=== PATIENT | female | born 1975 | race African-American/Black ===

== ENCOUNTER 2022-09-13 08:45 | Outpatient (CLI) | payer MEDICARE, BC, OTHER | END 2022-09-13 23:59 | disposition home or self-care (01) | LOC: LAB.N 08:45 | PROVIDERS: ATTEND Registered Nurse | DX: L02.91 Cutaneous abscess, unspecified (principal) | CPT/HCPCS: 87070; 87205 ==

== ENCOUNTER 2023-08-01 09:56 | Emergency (ER) | payer MEDICARE, BC, OTHER ==
[2023-08-01 10:17] VITALS: BP 115/80; O2SAT 100
--- NOTE | 2023-08-01 10:31 | XRAY Report ---
PROCEDURE: Shoulder 3 View RT INDICATIONS: trauma TECHNIQUE: 3 views of the shoulder were acquired. COMPARISON: None. FINDINGS: Bones: No fractures or dislocations. No suspicious bony lesions. Visualized ribs appear intact. Degenerative changes of the acromioclavicular and glenohumeral joints. Soft tissue calcifications ove r the superolateral right humeral head may represent sequela of chronic calcific rotator cuff tendino brandon. Tiny calcification over the inferior rim of the glenoid is likely chronic. . Soft tissues: No suspicious soft tissue calcifications. The visualized lungs are within normal limi ts. IMPRESSION: Right shoulder without definite acute fracture. Normal alignment. Moderate degenerative changes of th e acromioclavicular and glenohumeral joints. 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 Suspected chronic soft tissue calcification over the inferior glenoid. If there is continued clinical concern for pathology or occult fracture, consider follow-up imaging w ith repeat radiographs in 10-14 days and possible advanced imaging (CT, MRI, bone scan) if symptoms p ersist. Reviewed by: Jeffrey Lewis MD on 08/01/2023 10:30 AM PST Approved by: Jeffrey Lewis MD on 08/01/2023 10:30 AM PST Station ID: [id number]
--- NOTE | 2023-08-01 12:10 | ED Physician Documentation ---
PD HPI UPPER EXT INJURY - Stated complaint Stated Complaint: SHOULDER PX - Chief complaint Chief Complaint: Ext Problem - History obtained from History obtained from: Patient - Additonal information Additional information: Patient is a 48-year-old female presenting for evaluation Right shoulder pain for 4 days since lifting boxes for a move. 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 Denies prior injuries to the right shoulder. Reports pain with range of motion. Has occasionally tried some ibuprofen, 400 mg usually at night without any significant improvement. Patient states that the pain is worse as the day goes on. Reports feeling some tightness now behind the shoulder. No chest pain or shortness of air. Does not take a blood thinner. No other trauma. Review of Systems Cardiac: denies: Chest pain / pressure Respiratory: denies: Dyspnea Musculoskeletal: reports: Extremity pain PD PAST MEDICAL HISTORY - Past Medical History Past Medical History: Yes Musculoskeletal: Other Other Past Medical History: shai donohue - Past Surgical History Past Surgical History: Yes Ortho: ACL reconstruction - Present Medications Home Medications: Ambulatory Orders Medication Instructions Recorded Confirmed Cyclobenzaprine [Flexeril] 10 mg PO TID PRN #15 tablet 08/01/23 Lidocaine Patch 5% [Lidoderm Patch] 1 patch TOP DAILY PRN #10 patch 08/01/23 - Allergies Allergies/Adverse Reactions: Allergies Allergy/AdvReac Type Severity Reaction Status Date / Time Sulfa (Sulfonamide Allergy Diaphoresis Verified 08/01/23 10:12 Antibiotics) - Social History Does the pt smoke?: No Smoking Status: Never smoker Does the pt drink ETOH?: No Does the pt have substance abuse?: No - Immunizations Immunizations are current?: Yes - POLST Patient has POLST: No PD ED PE NORMAL - General General: Alert and oriented X 3, No acute distress, Well developed/nourished - HEENT HEENT: Atraumatic - Neck Neck: Supple, no meningeal sign, No bony TTP - Cardiac Cardiac: RRR, Strong equal pulses - Respiratory Respiratory: No respiratory distress, Clear bilaterally - Extremities Extremities: Other (No deformity, muscle spasm over right trapezius, pain with range of motion of right shoulder but able to touch left shoulder with right hand and abduct to 90 degrees; Motor and sensation grossly intact in right extremity) - Neuro Neuro: Alert and oriented X 3, No motor deficit, No sensory deficit, Normal speech Results - Vitals Vitals: Vital Signs - 24 hr 08/01/23 10:08 Temperature 36.0 C L Heart Rate 75 Respiratory 20 Rate Blood Pressure 115/80 O2 Saturation 100 Oxygen O2 Source Room air PD Medical Decision Making - ED course Complexity details: reviewed results, d/w patient ED course: Patient is a 48-year-old female presenting for evaluation of right shoulder pain after lifting boxes a few days ago. Neurovascularly intact. No deformiti es noted. No exam findings to suggest dislocation. An x-ray was obtained which I reviewed I see no fracture or dislocation. Patient does have some tightness over the trapezius. I discussed options for treatment and she is agreeable to trial of muscle relaxers along with anti-inflammatories and lidocaine patch. Patient also given a sling for comfort but instructed on getting her arm out of the sling and range of motion at the shoulder several times a day. Patient counseled on need for close follow-up as well as concerning symptoms to return for. Departure - Departure Disposition: 01 Home, Self Care Clinical Impression: Right shoulder pain Condition: Stable Instructions: ED Shoulder Pain [facility] Prescriptions: Cyclobenzaprine [Flexeril] 10 mg PO TID PRN #15 tablet PRN Reason: Spasms Lidocaine Patch 5% [Lidoderm Patch] 1 patch TOP DAILY PRN #10 patch PRN Reason: pain Comments: Your shoulder x-ray does not show a fracture or dislocation. We have given you a sling to help provide support. Please continue with acetaminophen or ibuprofen as an anti-inflammatory. I also sent prescriptions for lidocaine patches and a muscle relaxer to [facility] in [place]. Use the sling as needed for comfort but also make sure to get your arm out of the sling and move your arm around in all directions several times a day to prevent a frozen shoulder. I would also recommend close follow-up with your primary care provider. If your symptoms or not improving then you may need further testing such as an MRI. XRAY IMPRESSION: Right shoulder without definite acute fracture. Normal alignment. Moderate degenerative changes of the acromioclavicular and glenohumeral joints. 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 Suspected chronic soft tissue calcification over the inferior glenoid. If there is continued clinical concern for pathology or occult fracture, consider follow-up imaging with repeat radiographs in 10-14 days and possible advanced imaging (CT, MRI, bone scan) if symptoms persist. Forms: PCP List Discharge Date/Time: 08/01/23 12:21
== END 2023-08-01 12:21 | disposition home or self-care (01) ==
LOC: ED 09:56
DX: M25.511 Pain in right shoulder (principal)
CPT/HCPCS: 99283

== ENCOUNTER 2023-09-07 10:30 | Outpatient (CLI) | payer MEDICARE, BC, OTHER ==
[2023-09-07 21:18] LABS: BACTERIAL VAGINOSIS DNA NEGATIVE (NEGATIVE); CANDIDA GLABRATA DNA NEGATIVE (NEGATIVE); CANDIDA GROUP DNA NEGATIVE (NEGATIVE); CANDIDA KRUSEI DNA NEGATIVE (NEGATIVE); TRICHOMONAS VAGINALIS DNA NEGATIVE (NEGATIVE)
[2023-09-07 22:37] LABS: CHLAMYDIA TRACHOMATIS DNA NEGATIVE (NEGATIVE); NEISSERIA GONORRHOEAE DNA NEGATIVE (NEGATIVE)
== END 2023-09-07 10:45 | disposition home or self-care (01) ==
LOC: LAB.N 10:30
PROVIDERS: ATTEND Physician Assistant Medical
DX: N89.8 Other specified noninflammatory disorders of vagina (principal); R39.89 Other symptoms and signs involving the genitourinary system
CPT/HCPCS: 81514; 87086; 87491; 87591; 87661

== ENCOUNTER 2023-10-09 13:27 | Outpatient (CLI) | payer MEDICARE, BC, OTHER ==
--- NOTE | 2023-10-09 14:53 | Ultrasound Report ---
PROCEDURE: Pelvic w/Transvaginal INDICATIONS: FIBROIDS TECHNIQUE: Real-time scanning was performed of the pelvic organs, with image documentation. Additional endovagi nal scanning was necessary due to incomplete visualization of the adnexal and endometrial structures by transabdominal scanning. COMPARISON: None. FINDINGS: Uterus: 7.6 x 4.3 x 4 cm. Anteverted positioning. Endometrium measures 4 mm. Multiple fibroids, the largest is classified as FIGO 2, located in the posterior mid region measuring 2.8 x 2.7 cm. Other subserosal fibroids are seen measuring up to 1.7 and 1.3 cm. Other: No pathologic free fluid. IMPRESSION: Fibroid uterus, the largest cyst FIGO 2 in the posterior mid region measuring up to 2.8 cm. No other acute abnormality. Nonenlarged ovaries without discrete complex cyst or solid lesion. Reviewed by: Denny Smith MD on 10/09/2023 2:52 PM PST Approved by: Denny Smith MD on 10/09/2023 2:52 PM PST Station ID: [id number]
== END 2023-10-09 13:28 | disposition home or self-care (01) ==
LOC: DI 13:27
PROVIDERS: ATTEND Obstetrics & Gynecology
DX: D25.9 Leiomyoma of uterus, unspecified (principal); D25.2 Subserosal leiomyoma of uterus

== ENCOUNTER 2023-11-21 09:30 | Outpatient (CLI) | payer MEDICARE, BC, OTHER ==
[2023-11-21 12:18] LABS: BASOPHILS % (AUTO) 0.4 %; EOSINOPHILS # (AUTO) 0.2 10^3/uL (0.0-0.7); EOSINOPHILS % (AUTO) 3.3 %; HCT - HEMATOCRIT 43.3 % (37.0-47.0); HGB - HEMOGLOBIN 13.6 g/dL (12.0-16.0); LYMPHOCYTES # (AUTO) 2.3 10^3/uL (1.5-3.5); LYMPHOCYTES % (AUTO) 33.3 %; MEAN CORPUSCULAR HEMOGLOBIN 28.8 pg (27.0-31.0); MEAN CORPUSCULAR HGB CONC 31.4 g/dL (32.0-36.0); MEAN CORPUSCULAR VOLUME 91.7 fL (81.0-99.0); MEAN PLATELET VOLUME 11.1 fL (7.9-10.8); MONOCYTES # (AUTO) 0.3 10^3/uL (0.0-1.0); MONOCYTES % (AUTO) 4.7 %; NEUTROPHILS # (AUTO) 4.1 10^3/uL (1.5-6.6); NEUTROPHILS % (AUTO) 58.2 %; PLT - PLATELET COUNT 240 10^3/uL (130-450); RED BLOOD COUNT 4.72 10^6/uL (4.20-5.40); RED CELL DISTRIBUTION WIDTH 13.9 % (12.0-15.0)
[2023-11-21 12:20] LABS: % IRON SATURATION 22 % (20-50); ALBUMIN 4.6 g/dL (3.2-5.5); ALBUMIN/GLOBULIN RATIO 1.4 (1.0-2.2); ALKALINE PHOSPHATASE 67 IU/L (42-121); ALT ALANINE AMINOTRANSFERASE 15 IU/L (10-60); AST ASPARTATE AMINOTRANSFERASE 19 IU/L (10-42); BILIRUBIN,TOTAL 0.6 mg/dL (0.2-1.0); BUN - BLOOD UREA NITROGEN 13 mg/dL (6-20); CALCIUM 9.8 mg/dL (8.5-10.3); CARBON DIOXIDE - CO2 28 mmol/L (21-32); CHLORIDE 101 mmol/L (101-111); CHOL/HDL RATIO 3.3 (<4.4); CHOLESTEROL 290 mg/dL; CREATININE 0.9 mg/dL (0.6-1.3); GFR - MDRD 82 (>89); GLUCOSE 79 mg/dL (74-104); HDL CHOLESTEROL 89 mg/dL; IRON 80 ug/dL (50-212); LDL CHOLESTEROL,CALCULATED 183 mg/dL; LDL/HDL RATIO 2.1 (<4.4); POTASSIUM 4.2 mmol/L (3.5-4.5); SODIUM 134 mmol/L (135-145); TOTAL IRON BINDING CAPACITY 356 ug/dL (250-450); TRANSFERRIN 254 mg/dL (203-362); TRIGLYCERIDES 92 mg/dL (48-352); VLDL CHOLESTEROL 18 mg/dL
[2023-11-21 12:38] LABS: THYROID STIMULATING HORMONE 1.25 uIU/mL (0.34-5.60)
[2023-11-21 12:43] LABS: FERRITIN 52.2 ng/mL (11.0-306.8)
[2023-11-21 12:53] LABS: ESTIMATED AVERAGE GLUCOSE 108 mg/dL (70-100); HEMOGLOBIN A1c% 5.4 % (4.27-6.07)
[2023-11-22 02:08] LABS: VITAMIN D 25-HYDROXY 42.9 ng/mL (30.0-100.0)
== END 2023-11-21 09:31 | disposition home or self-care (01) ==
LOC: LAB.N 09:30
PROVIDERS: ATTEND Family Medicine
DX: F33.2 Major depressive disorder, recurrent severe without psychotic features (principal); Z68.32 Body mass index [BMI] 32.0-32.9, adult; N92.1 Excessive and frequent menstruation with irregular cycle; N94.6 Dysmenorrhea, unspecified; F43.10 Post-traumatic stress disorder, unspecified; E88.819 Insulin resistance, unspecified; F33.1 Major depressive disorder, recurrent, moderate; F84.0 Autistic disorder; F41.9 Anxiety disorder, unspecified; Q79.60 Ehlers-Danlos syndrome, unspecified; E88.810 Metabolic syndrome
CPT/HCPCS: 36415; 80053; 80061; 81599; 82306; 82607; 82672; 82728; 83001; 83036; 83540; 83721; 84443; 84466; 85025